=== PATIENT | female | born 1955 | race Two or more races ===

== ENCOUNTER → 2017-01-11 | Outpatient (CLI) | payer OTHER ==
--- NOTE | ~2017-01-11 | CR142 ---
[facility] A Service of [facility] & [facility] RADIOLOGY TEXT RESULTS PATIENT: TARYN CASTILLO LOCATION: [facility] : 51 UNIT #: [id number] AGE: [address]: BURAK Whalen APRN SEX: F ORDER DR: [id number] [facility] [address] [place]. [place], [place] [address] [id number] O MR#: [id number] Acc #: [id number] NAME: TARYN CASTILLO : 1955 SEX: F STUDY DATE/TIME: 01/11/2017 11:38 UNIT: [facility] ROOM: STUDY DESCRIPTION: CR Hand Min 3 Views Rt Attending Physician: Burak William Aprn Referring Physician: Burak William Aprn Ordering Physician: Burak William Aprn Primary Care Physician: Burak William Aprn MEDICAL IMAGING REPORT This report is preliminary unless electronic signature is present EXAM Right hand 3 views HISTORY Pain in both hands for 3-4 months. TECHNIQUE 3 views of the right hand are obtained. There is joint space narrowing at the DIP joints with mild hypertrophic changes. There is joint space narrowing to a lesser degree at the PIP joints. Remaining bony elements appear intact. No fractures, lytic or blastic lesions are seen. CONCLUSION Predominantly DIP joint space narrowing with hypertrophic changes to a lesser degree PIP joints with no evidence of bony erosions. Findings are most likely those of osteoarthritis. Dictated by... Jimbo Marie M.D. THIS IS AN ELECTRONICALLY VERIFIED REPORT Jimbo Marie M.D. at 01/14/2017 5:09 PM CHUY/margaret TD: 01/12/2017 10:01 JOB #: [id number] MEDICAL IMAGING REPORT Page 1 of 1 COPY
--- NOTE | ~2017-01-11 | CR141 ---
[facility] A Service of [facility] & [facility] RADIOLOGY TEXT RESULTS PATIENT: TARYN CASTILLO LOCATION: [facility] : 51 UNIT #: [id number] AGE: [address]: BURAK Whalen APRN SEX: F ORDER DR: [id number] [facility] [address] [place], [place] [address] [id number] O MR#: [id number] Acc #: [id number] NAME: TARYN CASTILLO : 1955 SEX: F STUDY DATE/TIME: 01/11/2017 11:38 UNIT: [facility] ROOM: STUDY DESCRIPTION: CR Hand Min 3 Views Lt Attending Physician: Burak William Aprn Referring Physician: Burak William Aprn Ordering Physician: Burak William Aprn Primary Care Physician: Burak William Aprn MEDICAL IMAGING REPORT This report is preliminary unless electronic signature is present EXAM Left hand 3 views HISTORY Hand pain for a few months. FINDINGS 3 views are submitted. Joint space narrowing is seen primarily at the DIP joints and to a lesser degree PIP joints. There are hypertrophic changes at the DIP joints. No fractures. No evidence of bone erosion or destruction. CONCLUSION Joint space narrowing predominantly DIP with hypertrophic changes consistent with osteoarthritis. Dictated by... Jimbo Marie M.D. THIS IS AN ELECTRONICALLY VERIFIED REPORT Jimbo Marie M.D. at 01/14/2017 5:09 PM CHUY/margaret TD: 01/12/2017 10:05 JOB #: [id number] MEDICAL IMAGING REPORT Page 1 of 1 COPY
== END | disposition home or self-care (01) ==
LOC: CRAD 11:26
DX: M79.641 Pain in right hand (principal); M79.642 Pain in left hand
CPT/HCPCS: 73130